=== PATIENT | female | born 1940 | race Caucasian/White ===

== ENCOUNTER 2016-03-14 16:15 | Observation (INO) | payer OTHER ==
[~2016-03-14] VITALS: Ht 160 cm; Wt 68.0 kg
[2016-03-14 16:18] VITALS: BP 184/93; PULSE 95; RESP 14; TEMP 98.5; O2SAT 96
[2016-03-14 17:44] LABS: AUTOMATED NEUTROPHIL # 9.9 TH/MM3 (1.8-7.7); BASOPHIL % 0.3 % (0.0-2.0); EOSINOPHIL # 0.3 TH/MM3 (0-0.4); EOSINOPHIL % 2.4 % (0.0-4.0); HEMATOCRIT 43.4 % (35.0-46.0); HEMO FLAGS DIFF FINAL; LYMPHOCYTE # 2.7 TH/MM3 (1.0-4.8); MEAN CELL VOLUME 98.7 FL (80.0-100.0); MEAN CORPUSCULAR HEMOGLOBIN 32.4 PG (27.0-34.0); MEAN CORPUSCULAR HGB CONC 32.8 % (32.0-36.0); MONO % 9.1 % (0.0-8.0); NEUT % 69.2 % (16.0-70.0); PLATELET COUNT 238 TH/MM3 (150-450); RED CELL DISTRIBUTION WIDTH 13.1 % (11.6-17.2); WHITE BLOOD COUNT 14.3 TH/MM3 (4.0-11.0)
[2016-03-14 18:09] LABS: ANION GAP 10 MEQ/L (5-15); BICARBONATE 23.1 MEQ/L (21.0-32.0); BLOOD UREA NITROGEN 26 MG/DL (7-18); CHLORIDE 104 MEQ/L (98-107); GLOMERULAR FILTRATION RATE 85 ML/MIN (>89); POTASSIUM 3.9 MEQ/L (3.5-5.1); SODIUM (NA) 137 MEQ/L (136-145)
[2016-03-14 18:12] LABS: CREATINE KINASE 111 U/L (26-192)
[2016-03-14 18:25] LABS: CKMB 1.7 NG/ML (0.5-3.6)
--- NOTE | 2016-03-14 19:51 | PD ---
HPI Chief Complaint: Chest Pain Time Seen by Provider: 19:51 Travel History International Travel<30 days: No Contact w/Intl Traveler<30days: No Traveled to known affect area: No History of Present Illness HPI 75-year-old female with PMH of DM, HTN, IBS presents to the ED for evaluation of palpitations, diaphoreses and chest discomfort. She describes the discomfort as a "faint pressure." First episode yesterday afternoon, while attempting to load groceries into her car. Patient is unsure of duration, states that she was able to drive home. Second episode woke the patient from sleep this morning. States that she listened to her heart and it sounded irregular. She took a baby aspirin and metoprolol. Rechecked with the stethoscope ~45 min -1 hr later and states "heart rate sounded normal." She saw her PCP today who told her that there were changes on her EKG and urged her to seek treatment in the ED. She endorses previous stress test " a few years ago." She has never smoked. Endorses multiple family members with cardiac history, including father with fatal OH in his 50s. PFSH Past Medical History Hx Anticoagulant Therapy: Yes (ASA) Cardiovascular Problems: Yes (HTN) Diabetes: Yes (METFORMIN) Social History Tobacco Use: No (never) Allergies-Medications (Allergen,Severity, Reaction): Coded Allergies: No Known Allergies (Unverified , 03/14/16) Reported Meds & Prescriptions Reported Meds & Active Scripts Active Reported Tranxene T (Clorazepate Dipotassium) 7.5 Mg Tab 7.5 Mg PO TID PRN Metformin (Metformin HCl) 500 Mg Tab 500 Mg PO DAILY With a meal Wellbutrin SR 12 HR (Bupropion HCl) 150 Mg Tab 150 Mg PO DIRECTED Norvasc (Amlodipine Besylate) 5 Mg Tab 5 Mg PO BID Enalapril (Enalapril Maleate) 20 Mg Tab 20 Mg PO BID Metoprolol Succinate ER 24 HR (Metoprolol Succinate) 100 Mg Tab 100 Mg PO BID Aspirin Low Dose (Aspirin) 81 Mg Chew 81 Mg CHEW DAILY Review of Systems General / Constitutional: No: Fever, Chills, Weight Gain, Weight Loss, Other HENT: No: Headaches Cardiovascular: Positive: Chest Pain or Discomfort, Palpitations, Diaphoresis, No: Edema Respiratory: Positive: Cough (chronic, non productive), Sneezing, No: Shortness of Breath Gastrointestinal: No: Nausea, Vomiting, Diarrhea, Abdominal Pain Genitourinary: No: Urgency, Frequency, Dysuria Musculoskeletal: No: Weakness Neurologic: No: Syncope Physical Exam Narrative GENERAL: Well-nourished, well-developed pleasant white female in no acute distress. SKIN: Warm and dry. HEAD: Normocephalic. EYES: No scleral icterus. No injection or drainage. NECK: Supple, trachea midline. Left-sided JVD. CARDIOVASCULAR: Regular rate and rhythm without murmurs, gallops, or rubs. 2+ DP and radial pulses bilaterally. RESPIRATORY: Breath sounds clear and equal bilaterally. No accessory muscle use. GASTROINTESTINAL: Abdomen soft, non-tender, nondistended. Active bowel sounds. MUSCULOSKELETAL: No cyanosis, or edema. BACK: Nontender without obvious deformity. No CVA tenderness. Data Data Last Documented VS Vital Signs Date Time Temp Pulse Resp B/P Pulse Ox O2 Delivery O2 Flow Rate FiO2 03/14/16 20:56 99 03/14/16 20:12 68 16 160/79 Room Air 03/14/16 16:18 98.5 Orders Electrocardiogram (03/14/16 16:31) Complete Blood Count With Diff (03/14/16 16:31) Basic Metabolic Panel (Bmp) (03/14/16 16:31) Ckmb (Isoenzyme) Profile (03/14/16 16:31) Troponin I (03/14/16 16:31) CKMB (03/14/16 17:18) CKMB% (03/14/16 17:18) Electrocardiogram (03/14/16 20:04) Ckmb (Isoenzyme) Profile (03/14/16 20:04) Troponin I (03/14/16 20:04) Chest, Single Ap (03/14/16 20:21) Ecg Monitoring (03/14/16 20:21) Bilateral Bp Monitoring (03/14/16 20:21) Iv Access Insert/Monitor (03/14/16 20:21) Oximetry (03/14/16 20:21) Place In Observation (03/14/16 20:44) Activity Bed Rest With Brp (03/14/16 20:44) Vital Signs (Adult) Q4H (03/14/16 20:44) Cardiac Rhythm .As Directed (03/14/16 20:44) ^ Notify Dr: Other .PRN (03/14/16 20:44) ^ Notify Dr. Parameters (03/14/16 20:44) Resp Oxygen Nasal Cannula (03/14/16 ) Ckmb (Isoenzyme) Profile (03/14/16 20:44) Ckmb (Isoenzyme) Profile (03/14/16 23:44) Troponin I (03/14/16 20:44) Troponin I (03/14/16 23:44) Electrocardiogram (03/14/16 20:44) Electrocardiogram (03/14/16 23:44) ^ Obtain (03/14/16 20:44) Sodium Chloride 0.9% Flush (Ns Flush) (03/14/16 20:45) Sodium Chloride 0.9% Flush (Ns Flush) (03/14/16 21:00) Heating Systems Installer / Telemetry [email or web address] (03/14/16 20:44) Admit Order (Ed Use Only) (03/14/16 20:54) CKMB (03/14/16 20:30) CKMB% (03/14/16 20:30) Labs Laboratory Tests Test 03/14/16 03/14/16 17:18 20:30 White Blood Count 14.3 TH/MM3 Red Blood Count 4.40 MIL/MM3 Hemoglobin 14.2 GM/DL Hematocrit 43.4 % Mean Corpuscular Volume 98.7 FL Mean Corpuscular Hemoglobin 32.4 PG Mean Corpuscular Hemoglobin 32.8 % Concent Red Cell Distribution Width 13.1 % Platelet Count 238 TH/MM3 Mean Platelet Volume 10.9 FL Neutrophils (%) (Auto) 69.2 % Lymphocytes (%) (Auto) 19.0 % Monocytes (%) (Auto) 9.1 % Eosinophils (%) (Auto) 2.4 % Basophils (%) (Auto) 0.3 % Neutrophils # (Auto) 9.9 TH/MM3 Lymphocytes # (Auto) 2.7 TH/MM3 Monocytes # (Auto) 1.3 TH/MM3 Eosinophils # (Auto) 0.3 TH/MM3 Basophils # (Auto) 0.0 TH/MM3 CBC Comment DIFF FINAL Differential Comment Sodium Level 137 MEQ/L Potassium Level 3.9 MEQ/L Chloride Level 104 MEQ/L Carbon Dioxide Level 23.1 MEQ/L Anion Gap 10 MEQ/L Blood Urea Nitrogen 26 MG/DL Creatinine 0.67 MG/DL Estimat Glomerular Filtration 85 ML/MIN Rate Random Glucose 93 MG/DL Calcium Level 9.8 MG/DL Total Creatine Kinase 111 U/L 116 U/L Creatine Kinase MB 1.7 NG/ML 2.3 NG/ML Troponin I LESS THAN 0.02 LESS THAN 0.02 NG/ML NG/ML MDM Medical Decision Making Medical Screen Exam Complete: Yes Emergency Medical Condition: Yes Differential Diagnosis Chest pain versus angina versus ACS versus dysrhythmia versus UTI versus electrolyte abnormality versus other Narrative Course 75-year-old female with PMH of DM, HTN, IBS presents to the ED for evaluation of episodic palpitations, diaphoresis, chest discomfort. Discomfort described as a faint pressure. Patient is unsure of the duration of these episodes, states they resolve on their own. States that she listened to her heart with a stethoscope this morning and it sounded irregular, rechecked in 45 minutes to an hour, "sounded normal.". She saw her PCP today who informed her there were changes on her EKG and urged her to seek treatment in the ED. Endorses stress test "a few years ago." Has never smoked. Strong family history, including father with fatal OH in his 50s. Vitals reviewed. Physical exam reveals a pleasant white female in no acute distress. Chest is clear to auscultation bilaterally. No appreciable M/R/G. Equal pulses in the distal extremities. No lower extremity edema. IV was established. Patient was placed on continuous monitoring. CBC: WBC 14.3. CMP: BUN 26 Cardiac enzymes: Negative 1 Chest x-ray: No active disease per radiology read. EKG: Rate 63, sinus rhythm. WV interval 209, QRS 88, QTC 411. Normal axis. No ischemic changes. Reviewed by Dr. Quarles. UA:pending I discussed the patient, workup and plan of care with Dr. Quarles who agrees. Protocol labs were drawn in triage and the first set of cardiac enzymes is negative. Mild leukocytosis, dehydration. UA pending. Patient will be admitted to the chest pain center for serial EKGs and cardiac enzymes. Discussed this plan of care with the patient and her family who are agreeable. Please see chest pain center notes for disposition. Diagnosis Primary Impression: Chest pain Qualified Code: R07.9 - Chest pain, unspecified type Sammie Allen Mar 14, 2016 19:51
[2016-03-14] MEDS ORDERED: CHLO7.5 PO (20:07)
[2016-03-14] MEDS ORDERED: ASPI81CH37 CHEW (20:07)
[2016-03-14] MEDS ORDERED: METO100T9 PO (20:07)
[2016-03-14] MEDS ORDERED: ENAL20TA PO (20:07)
[2016-03-14] MEDS ORDERED: AMLO5 PO (20:07)
[2016-03-14] MEDS ORDERED: METF500T PO (20:07)
[2016-03-14] MEDS ORDERED: BUPR150CR PO (20:07)
[2016-03-14 20:12] VITALS: BP 160/79; PULSE 68; RESP 16; O2SAT 100
[2016-03-14] MEDS ORDERED: SODIUM CHLORIDE 0.9% FLUSH 5 ML FLUSH IVF PRN (20:45)
[2016-03-14] MEDS: SODIUM CHLORIDE 0.9% FLUSH 5 ML FLUSH IVF SCH (20:53)
[2016-03-14 20:56] VITALS: O2SAT 99
[2016-03-14 21:24] LABS: CREATINE KINASE 116 U/L (26-192)
--- NOTE | 2016-03-14 21:36 | RADRPT ---
EXAM DATE/TIME: 03/14/2016 18:39 [facility] COMPARISON: No previous studies available for comparison. INDICATIONS : Chest palpitations today. MEDICAL HISTORY : Hypertension. Diabetes mellitus type II. SURGICAL HISTORY : None. ENCOUNTER: Initial ACUITY: 1 day PAIN SCORE: 0/10 LOCATION: Bilateral chest FINDINGS: A single view of the chest demonstrates the lungs to be symmetrically aerated without evidence of mas s, infiltrate or effusion. The cardiomediastinal contours are unremarkable. Osseous structures are intact. CONCLUSION: 1. No active disease. Lencho Rosas MD on March 14, 2016 at 21:33 Board Certified Radiologist. This report was verified electronically.
[2016-03-14 21:37] LABS: CKMB 2.3 NG/ML (0.5-3.6)
[2016-03-14 23:42] VITALS: BP 157/72; PULSE 65; RESP 16; O2SAT 98
[2016-03-14 23:57] LABS: BLOOD, URINE NEG (NEG); COMMENT (UR) CULT NOT INDICATED; CULTURE IF INDICATED CULT NOT INDICATED; GLUCOSE,URINE NEG (NEG); KETONE, URINE NEG (NEG); NITRITE,URINE NEG (NEG); SQUAMOUS EPITHELIAL CELL URINE 1 /hpf (0-5); URINE COLOR LIGHT-YELLOW (YELLW/STRAW)
[2016-03-15] LABS: CREATINE KINASE 96 U/L (26-192)
[2016-03-15 01:45] VITALS: BP 116/56; PULSE 63; RESP 18; TEMP 98.2; O2SAT 93
[2016-03-15 01:57] VITALS: PULSE 65
[2016-03-15 05:19] VITALS: PULSE 71
[2016-03-15 06:05] VITALS: BP 141/65; PULSE 71; RESP 18; TEMP 97.7
[2016-03-15 07:52] VITALS: O2SAT 96
[2016-03-15 08:00] VITALS: PULSE 68
[2016-03-15] MEDS ORDERED: METOPROLOL TARTRATE 100 MG TAB PO ONE (08:00)
[2016-03-15] MEDS ORDERED: ENALAPRIL MALEATE 10 MG TAB PO SCH (09:00)
[2016-03-15] MEDS ORDERED: amLODIPine BESYLATE 5 MG TAB PO SCH (09:00)
[2016-03-15] MEDS ORDERED: buPROPion HCL 150 MG SUSTAINED RELEASE TAB PO SCH (09:00)
[2016-03-15] MEDS ORDERED: REGADENOSON INJ 0.4 MG/5 ML SYR ONE (09:20)
[2016-03-15] MEDS: SODIUM CHLORIDE 0.9% FLUSH 5 ML FLUSH IVF SCH (10:23)
--- NOTE | 2016-03-15 11:06 | HHI.HP ---
[facility] Primary Care Physician Cheo Silva M.D. Chief Complaint Irregular heart rate History of Present Illness This is a 75-year-old female that presents to the emergency department with a complaint of sensation of her being rapidly and irregularly and diaphoresis. Patient states she woke up yesterday morning at 0600 sweating and with the sensation of her heart beating rapidly and irregularly. She grabbed her stethoscope and listened and thought that she heard atrial fibrillation. 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 She took her medications which included metoprolol and intermittently auscultated with her stethoscope and within 15 minutes she states that the rhythm was sinus. She also felt a fullness intermittently in her chest that will last for a few minutes at a time. She is not followed by broke worker. She saw her primary care physician Dr. Silva and told her that her EKG looked different and told her to go to the emergency department. Currently patient is asymptomatic. Denies fevers chills and recent illness. Review of Systems General: Patient denies fevers, chills recent, and recent travel HEENT: Patient denies headache, sore throat, difficulty swallowing. Cardiovascular: Has the chest discomfort as mentioned above. Patient complained of sensation of heart beating rapidly and irregularly for 15 minutes. Complained of diaphoresis initially.. No syncope. Respiratory: Denies shortness of breath or inspirational chest discomfort. Denies coughing wheezing or hemoptysis. GI: Patient denies nausea, vomiting, diarrhea, abdominal pain, bloody stools. Musculoskeletal: Patient denies joint pain or edema. Denies calf pain or edema. Neurovascular: Patient denies numbness, tingling, weakness in extremities. Denies headache. Endocrine: Denies polyuria and polydipsia. Hematologic: Denies easy bruising. Skin: Denies rash or itching. Past Family Social History Allergies: Coded Allergies: No Known Allergies (Unverified , 03/14/16) Past Medical History Hypertension, hyperlipidemia, diabetes, and anxiety. Denies knowledge of CAD. Patient states she had a stress test about 3 years ago and was normal. Past Surgical History Left foot to remove bone spurs. Cystocele and rectocele repaired. Tonsillectomy. Reported Medications 1.) Tranxene when necessary anxiety. 2.) Metformin. 3.) Norvasc. 4.) Enalapril. 5.) Metoprolol tartrate. 6.) Aspirin Family History Her father had an IN at age 57. Her mother had an IN at age 83. Social History Patient is a nonsmoker. Denies alcohol or illicit drugs. She is a retired ICU nurse. She is . Physical Exam Vital Signs Vital Signs Date Time Temp Pulse Resp B/P Pulse Ox O2 Delivery O2 Flow Rate FiO2 03/15/16 08:00 68 03/15/16 07:52 96 21 03/15/16 06:05 97.7 71 18 141/65 03/15/16 05:19 71 03/15/16 01:57 65 03/15/16 01:45 98.2 63 18 116/56 93 03/14/16 23:42 65 16 157/72 98 Room Air 03/14/16 20:56 99 03/14/16 20:12 68 16 160/79 100 Room Air 03/14/16 20:12 65 18 99 Room Air 03/14/16 16:18 98.5 95 14 184/93 96 Room Air Physical Exam GENERAL: This is a well-nourished, well-developed patient, in no apparent distress. Patient speaks in clear complete sentences. Patient is pleasant. HEENT: Head is atraumatic and normocephalic. Neck is supple without lymphadenopathy and trachea is midline. No JVD or carotid bruits. CARDIOVASCULAR: Regular rate and rhythm without murmurs, gallops, or rubs. RESPIRATORY: Clear to auscultation. Breath sounds equal bilaterally. No wheezes , rales, or rhonchi. Chest wall is nontender. No use of accessory muscles. GASTROINTESTINAL: Abdomen is nontender, nondistended. Abdomen soft. No obvious pulsatile mass or bruit. No CVA tenderness. Strong femoral pulses bilaterally. Normal bowel sounds in all quadrants. MUSCULOSKELETAL: Patient is moving upper and lower extremities freely. No calf tenderness or edema, no Homans sign. Strong pulses in upper and lower extremities. NEUROLOGICAL: Patient is alert and oriented. Cranial nerves 2-12 are grossly intact. No focal deficits and speech is clear. SKIN: No rash and turgor is normal. Laboratory Laboratory Tests Test 03/14/16 03/14/16 03/14/16 17:18 20:30 23:15 White Blood Count 14.3 Red Blood Count 4.40 Hemoglobin 14.2 Hematocrit 43.4 Mean Corpuscular Volume 98.7 Mean Corpuscular Hemoglobin 32.4 Mean Corpuscular Hemoglobin 32.8 Concent Red Cell Distribution Width 13.1 Platelet Count 238 Mean Platelet Volume 10.9 Neutrophils (%) (Auto) 69.2 Lymphocytes (%) (Auto) 19.0 Monocytes (%) (Auto) 9.1 Eosinophils (%) (Auto) 2.4 Basophils (%) (Auto) 0.3 Neutrophils # (Auto) 9.9 Lymphocytes # (Auto) 2.7 Monocytes # (Auto) 1.3 Eosinophils # (Auto) 0.3 Basophils # (Auto) 0.0 CBC Comment DIFF FINAL Differential Comment Sodium Level 137 Potassium Level 3.9 Chloride Level 104 Carbon Dioxide Level 23.1 Anion Gap 10 Blood Urea Nitrogen 26 Creatinine 0.67 Estimat Glomerular Filtration 85 Rate Random Glucose 93 Calcium Level 9.8 Total Creatine Kinase 111 116 96 Creatine Kinase MB 1.7 2.3 Troponin I LESS THAN 0.02 LESS THAN 0.02 LESS THAN 0.02 Urine Color LIGHT-YELLOW Urine Turbidity CLEAR Urine pH 5.0 Urine Specific Rogers 1.011 Urine Protein NEG Urine Glucose (UA) NEG Urine Ketones NEG Urine Occult Blood NEG Urine Nitrite NEG Urine Bilirubin NEG Urine Urobilinogen LESS THAN 2.0 Urine Leukocyte Esterase SMALL Urine WBC 2 Urine Squamous Epithelial 1 Cells Microscopic Urinalysis Comment CULT NOT INDICATED Result Diagram: 03/14/16171703/14/161717 Imaging Last 24 hours Impressions Chest X-Ray 03/14/162020 Signed Impressions: Service Date/Time: Monday, March 14, 2016 18:39 - CONCLUSION: 1. No active disease. Lencho Rosas MD Course EKGs have sinus rhythm with anterolateral nonspecific ST changes. Monitor was reviewed and no signs of A. fib. There were rare PVCs.. Assessment and Plan Assessment and Plan 1.) Atypical chest pain: Patient had serial cardiac enzymes and EKGs for ruling out purposes. She has been seen by Dr. Mathew Márquez of cardiology and the chest pain center. She will undergo a Lexiscan and if that were to be nonischemic she be discharged with instructions to follow with her primary care physician and a local broke worker. Patient states that her follows Dr. Cruz and that she should be able to get in to see him. Patient should arrange to have an event monitor to evaluate for possible arrhythmias. Patient should resume her medications. 2.) Hypertension: Continue current medications. 3.) Diabetes: Patient should continue current medications. She will be on sliding scale insulin coverage and a chest pain center. She should follow a diabetic diet. 4.) Hyperlipidemia: Patient should discuss restarting statin therapy for hyperlipidemia. Isrrael Maradiaga Mar 15, 2016 11:06
--- NOTE | 2016-03-15 11:12 | RADRPT ---
EXAM DATE/TIME: 03/15/2016 08:49 [facility] COMPARISON: No previous studies available for comparison. INDICATIONS: Substernal chest pain with diaphoresis and palpitations. Angina. DOSE: 25.5 mCi Tc99m Myoview at stress. 8.1 mCi Tc99m Myoview at rest. 0.4 mg Lexiscan STRESS SYMPTOMS: Dyspnea. EJECTION FRACTION: > 70% MEDICAL HISTORY: Hypertension. Diabetes mellitus type 2. Inflammatory bowel disease. SURGICAL HISTORY: Foot. ENCOUNTER: Initial ACUITY: 1 day PAIN SCALE: 4/10 LOCATION: Substernal chest TECHNIQUE: The patient underwent pharmacologic stress with infusion of prescribed dose. Continuous ECG tracing was monitored during stress. Gated SPECT imaging was performed after stress and conventional SPECT i maging was performed at rest. The examination was performed on a SPECT/CT scanner, both attenuation and non-corrected datasets were reviewed. FINDINGS: The gated and Cine loop images demonstrate no focal wall motion abnormality. The left ventricular ej ection fraction is calculated at greater than 70%. The cardiac SPECT stress and rest images demonstrate no fixed or reversible defect to suggest infarct or ischemia. CONCLUSION: No infarct, ischemia or focal wall motion abnormality. Left ventricular ejection fraction calculated at greater than 70%. RISK CATEGORY: Low risk (less than 1% annual mortality rate). Feliciano Grimm MD on March 15, 2016 at 10:52 Board Certified Radiologist. This report was verified electronically.
--- NOTE | 2016-03-15 11:18 | HHI.DCPOC ---
Discharge Care Plan Diagnosis: (1) Chest pain, atypical (2) Hypertension (3) Hyperlipidemia (4) DM (diabetes mellitus) Goals to Promote Your Health Discuss an event monitor with research nurse practitioner. Discussed statin therapy with your physician. * To prevent worsening of your condition and complications * To maintain your health at the optimal level Directions to Meet Your Goals Take your medications as prescribed Follow your dietary instruction Follow activity as directed Keep your appointments as scheduled Take your immunizations and boosters as scheduled If your symptoms worsen call your PCP, if no PCP go to Urgent Care Center or Emergency Room Smoking is Dangerous to Your Health. Avoid second hand smoke Call the 24-hour hour crisis hotline for domestic abuse at Isrrael Maradiaga Mar 15, 2016 11:18
--- NOTE | 2016-03-15 16:02 | EKG ---
Date Performed: 03/14/2016 Time Performed: 23:14:38 PTAGE: 75 years EKG: Sinus rhythm WITH FIRST DEGREE AV BLOCK NONSPECIFIC T-WAVE ABNORMALITY ABNORMAL ECG INTERPRETATION BASED ON A DEF SHONA AGE OF 40 YEARS NO PREVIOUS TRACING DOCTOR: Mathew Márquez Interpretating Date/Time 03/15/2016 16:00:46
--- NOTE | 2016-03-15 16:03 | EKG ---
Date Performed: 03/14/2016 Time Performed: 20:39:23 PTAGE: 75 years EKG: Sinus rhythm MODERATE VOLTAGE CRITERIA FOR LVH, CONSIDER NORMAL VARIANT BORDERLINE ECG PREVIOUS TRACING : 03/14/2016 16.56 Since previous tracing, no significant change noted DOCTOR: Mathew Márquez Interpretating Date/Time 03/15/2016 16:01:49
--- NOTE | 2016-03-15 16:05 | EKG ---
Date Performed: 03/14/2016 Time Performed: 16:56:14 PTAGE: 75 years EKG: NORMAL Sinus rhythm BORDERLINE LEFT AXIS DEVIATION MODERATE VOLTAGE CRITERIA FOR LVH, CONSIDER NORMAL VARIANT NO PREVIOUS TRACING DOCTOR: Mathew Márquez Interpretating Date/Time 03/15/2016 16:03:08
--- NOTE | 2016-03-15 16:07 | TR ---
Date Performed: 03/15/2016 Time Performed: 09:25:34 DOCTOR: Mathew Márquez DRUG LIST: CLINICAL HISTORY: REASON FOR TEST: Angina REASON FOR ENDING: OBSERVATION: CONCLUSION: Lexiscan stress test was performed under standard four minute protocol. Radionuclid e was injected one minute prior to ending the test. No electrocardiographic abormalities were present to suggest ischemia. Nuclear imaging and interpretation are pending. COMMENTS:
== END 2016-03-15 16:18 | disposition home or self-care (01) ==
LOC: NEPE 16:15 → NEDA 20:57 → NEPGCP 03-15 00:51
PROVIDERS: ADMIT Internal Medicine Interventional Cardiology; ATTEND Internal Medicine Interventional Cardiology
DX: R07.89 Other chest pain (principal); I10 Essential (primary) hypertension; E78.5 Hyperlipidemia, unspecified; E11.9 Type 2 diabetes mellitus without complications; I49.3 Ventricular premature depolarization; D72.829 Elevated white blood cell count, unspecified; E86.0 Dehydration; R94.31 Abnormal electrocardiogram [ECG] [EKG]; K58.9 Irritable bowel syndrome, unspecified; Z82.49 Family history of ischemic heart disease and other diseases of the circulatory system
CPT/HCPCS: 71010; 78452; 80048; 81001; 82550; 82552; 84484; 85025; 93005; 93017; 99285; A9502; G0378; J2785